=== PATIENT | male | born 1975 ===

== ENCOUNTER 2020-01-27 10:34 | Emergency (ER) | payer OTHER ==
[2020-01-27] MEDS ORDERED: Ondansetron 4 MG/2 ML SDV IVPUSH ONE (10:41)
[2020-01-27] MEDS ORDERED: Morphine 4 MG/ML Syringe IVPUSH ONE (10:41)
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
[2020-01-27 11:12] LABS: BLOOD UREA NITROGEN,BUN 15 mg/dL (7.0-18.0); CARBON DIOXIDE,CO2 23.8 mmol/L (21.0-32.0); CHLORIDE,CL 103 mmol/L (98-107); GLUCOSE RANDOM 120 mg/dL (74-106); POTASSIUM,K 3.9 mmol/L (3.5-5.1); SODIUM,NA 138 mmol/L (136-148)
--- NOTE | 2020-01-27 11:28 | CT ---
INDICATION: Trauma. TECHNIQUE: CT chest performed after IV injection of 100 mL of Isovue-370. FINDINGS: Small low-density focus involving the right aspect of a lower thoracic vertebral body benign. No posttraumatic abnormalities in the chest. No acute disease in the chest. 3 mm uncalcified nodule right midlung anteriorly on image 50. Focal ground-glass opacity in the right middle lobe posterior laterally measures 2 cm on image 79 and may be inflammatory. Given that this is rather focal, this opacity could be reassessed with a followup CT. Moderate diffuse fatty infiltration of the liver. Small cysts in the left kidney. Few small mildly prominent bilateral hilar lymph nodes with likely reactive in nature. Remainder negative. IMPRESSION: 1. No acute disease in abdomen with chest including no definite posttraumatic abnormalities. 2. Small nodule right midlung and 2 cm ground-glass nodule opacity in a right middle lobe could be inflammatory or postinflammatory. Consider at followup CT in 6 months to reassess. 3. Mild lymph node prominence in the left hilar region likely inflammatory or reactive. 4. Moderately prominent diffuse fatty infiltration liver. Please note that all CT scans at this facility use dose modulation, iterative reconstruction, and/or weight-based dosing when appropriate to reduce radiation dose to as low as reasonably achievable. Dictated by Sylvester Berg MD @ Jan 27 2020 11:21AM Signed by Dr. Sylvester Berg @ Jan 27 2020 11:28AM
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
[2020-01-27] MEDS ORDERED: HYDROmorphone 1 MG/ML Syringe IVPUSH ONE (12:14)
--- NOTE | 2020-01-27 13:22 | CR ---
INDICATION: Right shoulder and chest wall injury. TECHNIQUE: Three views of the right shoulder. COMPARISON: Today`s right clavicle and humerus x-rays. FINDINGS: No fracture. AC joint separation with lateral and the clavicle superior to the acromion. Humeral head anatomically aligned with the glenoid. Otherwise unremarkable. IMPRESSION: AC joint separation. Otherwise negative. Dictated by Gavin Torrez MD @ Jan 27 2020 1:17PM Signed by Dr. Gavin Torrez @ Jan 27 2020 1:20PM
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
[2020-01-27] MEDS ORDERED: Iopamidol 612 MG/ML 100 ML Bottle IVPUSH STA (16:35)
[2020-01-27] MEDS ORDERED: Iopamidol 755 Mg/ML 100 ML Bottle IVPUSH STA (16:37)
== END 2020-01-27 14:25 | disposition home or self-care (01) ==
LOC: MW.ED 10:34
DX: S43.101A Unspecified dislocation of right acromioclavicular joint, initial encounter (principal); S20.211A Contusion of right front wall of thorax, initial encounter; Z88.5 Allergy status to narcotic agent; V86.56XA Driver of dirt bike or motor/cross bike injured in nontraffic accident, initial encounter
CPT/HCPCS: 36415; 70450; 71260; 73000; 73030; 73060; 80053; 85025; 96374; 96375; 99284; J1170; J2270; J2405; Q9967; 99283